=== PATIENT | female | born 1990 | race Two or more races ===

== ENCOUNTER 2023-03-05 16:59 | Emergency (ER) | payer OTHER, BC ==
[2023-03-05 17:26] VITALS: BP 119/64; PULSE 77; RESP 17; TEMP 98.3; BMI 29.2
[2023-03-05] MEDS ORDERED: LIDOCAINE 4% PATCH TP ONE ×2 (18:40→18:52)
[2023-03-05] MEDS ORDERED: KETOROLAC TROMETHAMINE 30 MG/1 ML VIAL IM ONE (18:40)
[2023-03-05] MEDS ORDERED: ACETAMINOPHEN 500 MG TABLET (FP) PO ONE (18:40)
[2023-03-05] MEDS ORDERED: CYCLOBENZAPRINE HCL 10 MG TABLET (FP) PO ONE (18:47)
[2023-03-05] MEDS ORDERED: KETOROLAC TROMETHAMINE 30 MG/1 ML VIAL ONE (18:52)
[2023-03-05] MEDS ORDERED: CYCLOBENZAPRINE HCL 10 MG TABLET (FP) ONE (18:52)
[2023-03-05] MEDS ORDERED: ACETAMINOPHEN 500 MG TABLET (FP) ONE (18:52)
[2023-03-05] MEDS ORDERED: LIDOCAINE PATCH REMOVAL MC SCH (22:00)
== END 2023-03-05 20:16 | disposition home or self-care (01) ==
LOC: JERFT 16:59
PROC: 3E0233Z Introduction of Anti-inflammatory into Muscle, Percutaneous Approach (ICD-10-PCS; principal; 2023-03-05)
DX: M54.2 Cervicalgia (principal); M54.50 Low back pain, unspecified; V47.5XXA Car driver injured in collision with fixed or stationary object in traffic accident, initial encounter; Y93.I9 Activity, other involving external motion
CPT/HCPCS: 72100-TC-FY; 99284-25